=== PATIENT | male | born 1955 | race Caucasian/White ===

== ENCOUNTER → 2019-01-19 08:54 | Outpatient (CLI) | payer OTHER, SELFPAY ==
[2019-01-19 12:50] LABS: Absolute Lymphocyte Count 1.64 X10^3/ul (0.83-4.51); Absolute Neutrophil Count 7.4 X10^3/uL (2.0-7.7); Basophil# 0.03 X10^3/uL; Basophil% 0.3 % (0-1); Eosinophil# 0.25 X10^3/uL; Eosinophils% 2.4 % (0-5); Hematocrit 45.6 % (40-54); Hemoglobin 15.3 g/dl (13.0-16.5); Lymphocyte # 1.64 X10^3/ul (4.0); Lymphocyte % 16.1 % (19-41); Mean Corp Hgb Conc 33.6 g/gl (32-36); Mean Corpuscular Hgb 29.3 pg (27.0-32.0); Mean Corpuscular Volume 87.4 fL (80-94); Mean Platelet Vol. 10.6 fl (6.2-12.0); Monocyte# 0.88 X10^3/uL; Monocyte% 8.6 % (0-10); Neutrophil # 7.39 X10^3/uL (2.7-7.7); Neutrophil % 72.4 % (47-70); Platelet Count 185 K/mm3 (150-450); RBC Distribution Width CV 13.3 % (11.6-14.6); RBC Distribution Width SD 42.5 fl (35.1-43.9); Red Blood Count 5.22 M/mm3 (4.6-6.2); White Blood Count 10.2 K/mm3 (4.4-11.0)
[2019-01-19 12:56] LABS: Anion Gap 4 (5-15); BUN 14 mg/dL (7-18); BUN/Creat Ratio 12.5 RATIO (10-20); Calcium,Total 8.9 mg/dL (8.5-10.1); Chloride 108 mmol/L (98-107); Creatinine, Serum 1.12 mg/dL (0.70-1.30); EST Glomerular Filtration Rate 70 mL/min (>60); Est Glom Filt Rate - Afr Amer 85 mL/min (>60); Glucose 94 mg/dL (74-106); Potassium 3.8 mmol/L (3.5-5.1); Sodium Level 142 mmol/L (136-145)
[2019-01-19 13:06] LABS: Vitamin D,25 Hydroxy 42.1 ng/mL (29.95-100.01)
[2019-01-19 13:11] LABS: POSITIVE COUNT NO; POSITIVE DIFFERENTIAL NO; POSITIVE MORPHOLOGY NO
== END ==
PROVIDERS: Family Provider Family Medicine; PCP Family Medicine; Visit Provider Family Medicine
DX: M79.7 Fibromyalgia (principal); E55.9 Vitamin D deficiency, unspecified; R73.01 Impaired fasting glucose
CPT/HCPCS: 36415; 80048; 82306; 85025

== ENCOUNTER → 2024-07-09 | Outpatient (CLI) | payer MEDICARE, SELFPAY ==
[2024-07-09 18:23] LABS: PSA,Total - Annual Screen 0.87 ng/mL (0.00-4.00)
== END | disposition home or self-care (01) ==
PROVIDERS: PCP Nurse Practitioner Family; Referring Provider Nurse Practitioner Family; Visit Provider Nurse Practitioner Family
DX: Z12.5 Encounter for screening for malignant neoplasm of prostate (principal)
CPT/HCPCS: 36415; 84153; G0103

== ENCOUNTER 2024-10-10 11:57 | Emergency (ER) | payer MEDICARE, SELFPAY ==
[2024-10-10 11:57] VITALS: BP 183/77; PULSE 76; RESP 18; TEMP 36.4; O2SAT 100; BMI 27.5
[2024-10-10 12:27] LABS: Bacteria 0 SEEN /hpf (None Seen); Mucous, Urine 0 SEEN /hpf (<or=2+); Red Blood Cells-Urine 0 SEEN /hpf (0-5); Squamous Epithelial Cells - UA 0 SEEN /hpf (0-5); White Blood Cells 0 SEEN /hpf (0-5)
[2024-10-10 12:34] LABS: Glucose, Dipstick Normal (Normal); Ketone-Dipstick Negative (Negative); Leukocyte Esterase-Dipstick 25 /ul (Negative); Nitrite-Dipstick Negative (Negative); Occult Blood-Urine 250 /ul (Negative); Protein-Dipstick 30 mg/dl (Negative); Urine Bilirubin Dipstick Negative (Negative); Urine Clarity Clear (Clear); Urine Urobilinogen Normal (Normal); Urine pH 6.5 (5.0 - 8.0)
[2024-10-10 12:35] LABS: Absolute Lymphocyte Count 1.36 X10^3/uL (0.83-4.51); Absolute Neutrophil Count 8.6 X10^3/uL (2.0-7.7); Basophil# 0.07 X10^3/uL; Basophil% 0.6 % (0-1); Eosinophil# 0.25 X10^3/uL; Eosinophils% 2.2 % (0-5); Hematocrit 45.3 % (40-54); Hemoglobin 14.9 g/dL (13.0-16.5); Lymphocyte # 1.36 X10^3/ul (0.83-4.51); Lymphocyte % 12.2 % (19-41); Mean Corp Hgb Conc 32.9 g/dL (32-36); Mean Corpuscular Hgb 27.4 pg (27.0-32.0); Mean Corpuscular Volume 83.3 fL (80-94); Mean Platelet Vol. 9.9 fl (6.2-12.0); Monocyte# 0.79 X10^3/uL; Monocyte% 7.1 % (0-10); NRBC Flagged by Analyzer 0 % (0-5); Neutrophil # 8.63 X10^3/uL (2.7-7.7); Neutrophil % 77.5 % (47-70); Platelet Count 202 K/mm3 (150-450); RBC Distribution Width CV 13.4 % (11.6-14.6); RBC Distribution Width SD 40.7 fl (35.1-43.9); Red Blood Count 5.44 M/mm3 (4.6-6.2); White Blood Count 11.1 K/mm3 (4.4-11.0)
[2024-10-10 12:42] LABS: Color, Urine SEE COMMENT BELOW (Yellow)
[2024-10-10 12:45] LABS: Anion Gap 7 (5-15); BUN 17 mg/dL (7-18); Calcium,Total 9.5 mg/dL (8.5-10.1); Chloride 104 mmol/L (98-107); Creatinine, Serum 1.21 mg/dL (0.70-1.30); EST Glomerular Filtration Rate 63 mL/min (>60); Est Glom Filt Rate - Afr Amer 77 mL/min (>60); Estimated Creatinine Clearance 62.23 ml/min; Glucose 108 mg/dL (74-106); Potassium 3.3 mmol/L (3.5-5.1); Sodium Level 140 mmol/L (136-145)
[2024-10-10 12:59] VITALS: BP 143/85; PULSE 73; RESP 16; TEMP 36.6; O2SAT 99
--- NOTE | 2024-10-10 13:16 | EX.ED.DYSGE1 ---
HPI History of Present Illness Chief Complaint: Flank Pain Informant: patient Onset/Context/Timing Onset: Today Context: Gradual Onset Timing: Continuous Quality: Cramping Location: Left flank and left abdomen Worsened by: Laying down Relieved by: Nothing Narrative Narrative: Patient presents with left flank pain and hematuria that began today. Patient states he noted some dark urine earlier today. Patient states he went to the urgent care and noted some small clots of blood when he urinated there. Patient describes his pain as cramping. Patient states the pain is over the left flank and abdomen. Patient states it is worse with laying down. Patient states nothing makes it better. Patient admits to a subjective fever at home. Patient admits to some nausea but denies any vomiting. [facility] Medical History (Updated 10/10/24 @ 14:[address] Oziel Laguerre DO) Ulnar neuropathy at elbow of right upper extremity IBS (irritable bowel syndrome) Home Medications ?Medication ?Instructions ?Recorded ?Last Taken ?Type aspirin 81 mg tablet,delayed 81 mg PO QDAY 10/10/24 Unknown History release (Adult Low Dose Aspirin) atorvastatin 20 mg tablet mg PO DAILY 10/10/24 Unknown History lisinopril 5 mg tablet mg PO 10/10/24 Unknown History minocycline 50 mg capsule mg PO 10/10/24 Unknown History prednisone 5 mg tablet mg PO DAILY 10/10/24 Unknown History tamsulosin 0.4 mg capsule 0.4 mg PO DAILY #7 CAPSULES 10/10/24 Unknown Rx Allergy/AdvReac Type Severity Reaction Status Date / Time codeine Allergy other Verified 10/10/24 11:59 Surgical History (Updated 10/10/24 @ 14:[address] Oziel Laguerre DO) S/P ascending aortic aneurysm repair Aortic valve replaced Social History Smoking Status: Never smoker ROS ROS ED Constitutional Constitutional ED: Reports fever(s); Denies chills Eyes Eyes: Denies blurry vision or change in vision ENT ENT ED: Denies rhinorrhea or sore throat Cardiovascular Cardiovascular: Denies chest pain or palpitations Respiratory/Chest Respiratory/Chest: Denies cough or dyspnea Gastrointestinal Gastrointestinal: Reports abdominal pain and nausea; Denies vomiting Genitourinary Genitourinary ED: Reports hematuria; Denies dysuria Musculoskeletal Musculoskeletal: Reports back pain; Denies neck pain Integumentary Denies abscess or rash Neurologic Neurologic: Denies headache(s) or weakness Allergic/Immunologic Allergic/Immunologic ED: Denies mouth swelling or urticaria EXAM Physical Exam Const Vital Signs: 10/10/24 11:57 Temperature 97.6 F L Temperature Source Temporal Pulse Rate 76 Respiratory Rate 18 Blood Pressure 183/77 H Blood Pressure Mean 112 Pulse Ox 100 Oxygen Delivery Method Room Air Positive well nourished and well developed General Appearance ED: well developed and NAD HEENT Reports moist mucous membranes Neck supple and no JVD Resp normal respiratory effort and clear to auscultation bilaterally Cardio regular rate and regular rhythm GI non-distended Palpation: soft and tender LLQ; Negative for guarding or rebound tenderness present Back/Spine General Back: CVA tenderness left Extremity normal to inspection General Extremety ED: Negative for edema or tenderness General Extremity: Negative for edema Neuro oriented x3, CN's II-XII intact bilaterally and no sensory deficits noted Sensorium / Orientation: alert Motor Exam: strength 5/5 throughout Psych mental status grossly normal MDM MDM MDM Narrative Medical decision making narrative: Differential diagnosis ureteral calculus, pyelonephritis, urinary tract infection, diverticulitis, colitis, and viral illness. CBC will be obtained to assess for leukocytosis and anemia. Basic metabolic profile will be obtained to assess for electrolyte abnormality and renal function. Urinalysis will be obtained to assess for urinary tract infection and hematuria. CT scan of the abdomen and pelvis will be obtained to assess for ureteral calculus, bowel obstruction, perforation, and pyelonephritis. Lab Data Attestation: I reviewed the patient's lab results. Lab results narrative: CBC was reviewed. There is a slight leukocytosis of 11.1. The remainder is within normal limits. Basic metabolic profile was reviewed. Potassium was 3.3. The remainder was within normal limits. Urinalysis was reviewed. Occult blood was 250. There were 0 red blood cells noted. Labs: Laboratory Results - last 24 hr 10/10/24 10/10/24 12:15 12:20 WBC 11.1 H RBC 5.44 Hgb 14.9 Hct 45.3 MCV 83.3 MCH 27.4 MCHC 32.9 RDW Std Deviation 40.7 RDW Coeff of Kurt 13.4 Plt Count 202 MPV 9.9 Immature Gran % (Auto) 0.400 Neut % (Auto) 77.5 H Lymph % (Auto) 12.2 L [place] % (Auto) 7.1 Eos % (Auto) 2.2 Baso % (Auto) 0.6 Absolute Neuts (auto) 8.6 H Absolute Lymphs (auto) 1.36 Nucleated RBC % 0 Sodium 140 Potassium 3.3 L Chloride 104 Carbon Dioxide 29.0 Anion Gap 7 BUN 17 Creatinine 1.21 Estim Creat Clear Calc 62.23 Est GFR (MDRD) Af Amer 77 Est GFR (MDRD) Non-Af 63 BUN/Creatinine Ratio 14.0 Glucose 108 H Calcium 9.5 Urine Color SEE COMMENT BELOW Urine Clarity Clear Urine pH 6.5 Ur Specific [place] 1.010 Urine Protein 30 H Urine Glucose (UA) Normal Urine Ketones Negative Urine Occult Blood 250 H Urine Nitrite Negative Urine Bilirubin Negative Urine Urobilinogen Normal Ur Leukocyte Esterase 25 H Urine RBC 0 SEEN Urine WBC 0 SEEN Ur Squamous Epith Cells 0 SEEN Urine Bacteria 0 SEEN Urine Mucus 0 SEEN Radiography Diagnostic Testing: CT scan of the abdomen and pelvis was obtained. There is a 5.1 mm calculus in the distal left ureter. There is mild left perinephric stranding. There is a nonobstructing right renal calculus noted. There are right renal cyst. There is a small cyst in the dome of the right lobe of the liver. There is no other acute abnormality noted. This was interpreted by the radiologist and was also independently reviewed by myself. Treatment and Re-Evaluation :: Patient was advised of his findings. Patient was resting comfortably on reevaluation. Patient states he does not want any pain medication at this time. Patient states he will take Tylenol at home. Patient was instructed to follow-up with his primary care physician in several days. Patient was instructed to return if worse in any way. Patient understood and was agreeable with the plan. All questions were answered. Discharge Plan Triage Chief Complaint: Flank Pain ED Provider: Oziel Laguerre Dx/Rx/DC Orders Clinical Impression: Calculus of distal left ureter, Left flank pain Instructions: ED Kidney Stone with Pain Prescriptions: New tamsulosin 0.4 mg capsule 0.4 mg PO DAILY Qty: 7 0RF No Action lisinopril 5 mg tablet PO Patient Comments: [NO ORIGINAL SIG] prednisone 5 mg tablet PO DAILY atorvastatin 20 mg tablet PO DAILY minocycline 50 mg capsule PO aspirin [Adult Low Dose Aspirin] 81 mg tablet,delayed release (DR/EC) 81 mg PO QDAY Primary Care Provider: Delilah Zaman Referrals: Alberto Parra MD [Med Staff - Active Staff] - 5-7 Days Delilha Zaman NP-C [Primary Care Provider] - 5-7 Days Print Language: [place] Disposition Disposition: Home, Self Care
--- NOTE | 2024-10-10 13:27 | CT_ITS ---
STUDY: CT ABDOMEN AND PELVIS WITHOUT CONTRAST REASON FOR EXAM: Male, 69 years old. Hematuria and left flank pain. RADIATION DOSAGE (If Supplied By Facility): CTDIvol = ( 7.93 ) mGy, DLP = ( 451.99 ) mGycm TECHNIQUE: Transaxial images were obtained from the dome of the diaphragm to the symphysis pubis without oral contrast, and without intravenous contrast. Sagittal and coronal images were reconstructed. Individualized dose optimization techniques were used for this CT. COMPARISON: None. FINDINGS: Mild degree of increased linear markings at the lung bases suggestive of linear atelectasis. Coronary artery calcification. There is a 7.8 mm hypodensity in the dome of the right lobe of the liver suggestive of a small cyst. There are surgical clips in the gallbladder fossa consistent with a prior cholecystectomy. Normal spleen. Normal pancreas. Normal bilateral adrenal glands. Nonobstructive calculus in the midportion of the right kidney. Right renal cysts. The largest cyst measures 6.5 size by 6.1 cm. Mild left hydronephrosis and left hydroureter due to a 5.1 mm calculus in the distal portion of the left ureter. Mild degree of left perinephric stranding. There is a small hiatal hernia. Normal small intestine. There are multiple colonic diverticula consistent with diverticulosis. The appendix is visualized and appears normal. Normal abdominal aorta. Normal inferior vena cava. Normal retroperitoneum. Normal urinary bladder. Small bilateral inguinal hernias containing fat more prominent on the left side. Small umbilical hernia. There are degenerative changes of the visualized lumbar spine. CT/Abdomen/Pelvis without Cont IMPRESSION: 5.1 mm calculus in the distal portion of the left ureter causing left hydronephrosis and left hydroureter. Findings suggest a small cyst in the dome of the right lobe of liver. Right renal cyst. Nonobstructive right intrarenal calculus. Electronically Signed: Geoffrey Horta MD at 14:00 EST ,
[2024-10-10 14:00] VITALS: BP 141/81; PULSE 68; RESP 16; TEMP 36.8; O2SAT 97
[2024-10-10 15:00] VITALS: BP 133/78; PULSE 74; RESP 16; TEMP 36.8; O2SAT 99
== END 2024-10-10 15:10 | disposition home or self-care (01) ==
PROVIDERS: Emergency Provider Emergency Medicine; PCP Nurse Practitioner Family; Referring Provider Emergency Medicine; Visit Provider Emergency Medicine
DX: N20.1 Calculus of ureter (principal)
CPT/HCPCS: 74176; 80048; 81001; 85025; 99283; A4216